=== PATIENT | male | born 1950 | race Caucasian/White ===

== ENCOUNTER 2017-12-31 00:07 | Day surgery (SDC) | payer OTHER ==
[2017-12-31] VITALS (7 sets, daily range): BP systolic 97–136; BP diastolic 71–88
[~2017-12-31] VITALS: Ht 167.6 cm; Wt 81.2 kg
[~2017-12-31 00:07] MED LIST: IBU800 PO; LEVO25TA61 PO; LOR5 PO; MULT-820 PO
[2017-12-31] MEDS ORDERED: PROPOFOL EMUL(*) 10MG/ML 20 ML 20 ML ONE ×2 (07:08→07:46)
--- NOTE | 2017-12-31 07:18 | Post Operative Progress Note ---
Post Operative Progress Note Date: Dec 31, 2017 Time: 07:57 Surgeon: herber Anesthesia: dr velásquez Pre-Op Diagnosis: screening colonoscopy Post-Op Diagnosis: normal colonoscopy Procedure(s): colonoscopy GILDA SILVEIRA MD Dec 31, 2017 07:18
--- NOTE | 2017-12-31 07:19 | Short(Outpt) Discharge Summary ---
Discharge Summary Reason for Hosp/Final Diag: (1) Encounter for screening colonoscopy Hospital Course & Plan: normal colonoscopy Departure Discharge to: Home Discharge Instructions Home Meds Reported Medications Levothyroxine Sodium (LEVOTHYROXINE SODIUM) 25 Mcg Tablet, 25 MCG PO QDAY 12/29/17 Multivitamins (Multivitamin) 1 Tab Tablet, 1 TAB PO DAILY, 0 Refills 01/12/09 Discontinued Reported Medications Ibuprofen (Motrin) 800 Mg Tab, 800 MG PO Q8H, 0 Refills 01/12/09 Acetaminophen/Hydrocodone (Lortab 5/500) 5 Mg/500 Mg Tab, 1 EA PO Q4-6H, 0 Refills 1-2 TABLETS 01/12/09 Diet: Regular Activity: As Tolerated GILDA SILVEIRA MD Dec 31, 2017 07:19
[2017-12-31] MEDS ORDERED: LIDOCAINE/SOD BICARB 8.4% SYR ID ONE (09:00)
[2017-12-31] MEDS ORDERED: MIDAZOLAM 2 MG/2 ML VIAL IVP ONE (09:00)
[2017-12-31] MEDS ORDERED: NORMOSOL R SOLN(*) 1000 ML BAG 1,000 ML IV PRN (09:00)
--- NOTE | 2017-12-31 14:19 | OPERATIVE REPORT 1 ---
EVENT DATE: December 31, 2017 SURGEON: Adebayo Magdaleno MD ANESTHESIOLOGIST: Glenroy Banegas MD ANESTHESIA: Sedation. PREOPERATIVE DIAGNOSIS Screening colonoscopy. POSTOPERATIVE DIAGNOSIS Normal-appearing colonoscopic examination. PROCEDURE PERFORMED Colonoscopy. DESCRIPTION OF PROCEDURE The patient was placed in the left lateral decubitus position and given intravenous sedation. The rectal exam was unremarkable. No palpable masses. The flexible colonoscope was inserted and advanced to the cecum. He had some solid stool present that made complete visualization impossible. We tried irrigating and sucking, but we kept plugging up the scope. We got pretty good visualization. No abnormalities were noted in the cecum, right colon, transverse, descending, or sigmoid colon. Rectum was normal. The scope was retroflexed, and that appeared to be normal. [facility]
== END 2017-12-31 08:50 | disposition home or self-care (01) ==
LOC: OR 00:07
PROVIDERS: ATTEND Surgery
DX: Z12.11 Encounter for screening for malignant neoplasm of colon (principal)
CPT/HCPCS: 00812; 45378; J2704